=== PATIENT | male | born 1980 | race Caucasian/White ===

== ENCOUNTER 2017-09-18 12:58 | Emergency (ER) | payer SELFPAY ==
[2017-09-18] MEDS ORDERED: Sodium Chloride 0.9% 1,000 ML IV ONE (13:18)
[2017-09-18] MEDS ORDERED: Ketorolac 30 MG/ML SDV IVPUSH ONE (13:18)
[2017-09-18] MEDS ORDERED: Ondansetron 4 MG/2 ML SDV IVPUSH ONE (13:18)
--- NOTE | 2017-09-18 13:30 | EDM.PDOC ---
ED HPI GENERAL MEDICAL PROBLEM - General Chief Complaint: Back Pain or Injury Stated Complaint: LOWER BACK PAIN Time Seen by Provider: 09/18/17 13:04 Source of Information: Reports: Patient History Limitations: Reports: No Limitations - History of Present Illness INITIAL COMMENTS - FREE TEXT/NARRATIVE: HISTORY AND PHYSICAL: History of present illness: Patient is a 37-year-old male who presents to the emergency room with complaints of left flank pain. He states for the past 2 days he has had increased urgency and frequency with urination and left flank pain. Reports that earlier today that the "pain was so bad" that he did have an emesis. He denies any hematuria, dysuria, abdominal pain or tenderness, diarrhea, constipation.. Denies any fever, chills, chest pain, shortness of breath. Denies any recent injury or trauma Review of systems: As per history of present illness and below otherwise all systems reviewed and negative. Past medical history: As per history of present illness and as reviewed below otherwise noncontributory. Surgical history: As per history of present illness and as reviewed below otherwise noncontributory. Social history: No reported history of drug or alcohol abuse. Family history: As per history of present illness and as reviewed below otherwise noncontributory. Physical exam: General: Well-developed and well-nourished 37-year-old male. Alert and oriented. Nontoxic appearing and in no acute distress. HEENT: Atraumatic, normocephalic, pupils reactive, negative for conjunctival pallor or scleral icterus, mucous membranes moist, throat clear, neck supple, nontender, trachea midline. Lungs: Clear to auscultation, breath sounds equal bilaterally, chest nontender. Heart: S1S2, regular rate and rhythm Abdomen: Soft, nondistended, nontender. Negative for masses or hepatosplenomegaly. Mild left sided costovertebral tenderness. Pelvis: Stable nontender. Genitourinary: Deferred. Rectal: Deferred. Extremities: Atraumatic, negative for cords or calf pain. Neurovascular unremarkable. Neuro: Awake, alert, oriented. Cranial nerves II through XII unremarkable. Cerebellum unremarkable. Motor and sensory unremarkable throughout. Exam nonfocal. Patient was able to void a small amounts of clear yellow urine. No obvious blood noted in the specimen. Patient is agreeable to CT scan and routine labs at this time. CT of the abdomen and pelvis show a 3 mm stone in the left posterior urinary bladder, no hydronephrosis. The UA shows bacteria without any WBCs, a urine alter has been added. We'll treat the patient with [place] (disp #15 - NRF), Flomax, Zofran and levofloxacin. Encouraged patient to follow up with urology next week. He voices understanding and is agreeable to plan of care. Diagnostics: CBC, CMP, UA, CT abdomen and pelvis without contrast Therapeutics: IV fluid, Zofran, Toradol Flomax Impression: #1 Left flank pain #2 Kidney stone Plan: 1. Please take your medications as directed. Flomax 0.4 mg once daily 14 days. Zofran as needed for nausea one tab every 6 hours as needed. [place] 1-2 tab every 4-6 hours as needed. This medication may cause drowsiness a do not take it while driving or needing to be functioning outside of the house. He may do Tylenol and/or ibuprofen as needed for breakthrough pain or daytime use. An antibiotic has been given to or some bacteria in the urine. Please take one tab daily 7 days. Urine culture has been added, we will call you if this antibiotic needs to be changed. 2. Increase her fluid intake. Avoid excessive caffiene intake. 3. Follow up with Dr. Esqueda next week. Return to the ED as needed and as discussed. Definitive disposition and diagnosis as appropriate pending reevaluation and review of above. Duration: Day(s): Location: Reports: Abdomen Left Flank Pain Score (Numeric/FACES): 9 - Related Data Allergies Allergy/AdvReac Type Severity Reaction Status Date / Time No Known Allergies Allergy Verified 09/18/17 13:15 Home Meds: Home Meds . [No Known Home Meds] 09/18/17 [History] Past Medical History - Past Health History Medical/Surgical History: Denies Medical/Surgical History Social & Family History - Tobacco Use Smoking Status *Q: Current Every Day Smoker Years of Tobacco use: 10 Packs/Tins Daily: 0.5 Second Hand Smoke Exposure: No - Caffeine Use Caffeine Use: Reports: Soda - Recreational Drug Use Recreational Drug Use: No ED ROS GENERAL - Review of Systems Review Of Systems: ROS reveals no pertinent complaints other than HPI. ED EXAM, RENAL/ - Physical Exam Exam: See Below (See dictation) Course - Vital Signs Last Recorded V/S: Last Vital Signs Temp 97.4 F 09/18/17 13:21 Pulse 90 09/18/17 13:21 Resp 18 09/18/17 13:21 BP 140/87 09/18/17 13:21 Pulse Ox 97 09/18/17 13:21 - Orders/Labs/Meds Orders: Active Orders 24 hr Category Date Time Status Abdomen Pelvis wo Cont [CT] Stat Exams 09/18/17 13:18 Taken CHLAMYDIA AND GONORRHEA BY [facility] Stat Lab 09/18/17 14:24 Ordered CULTURE URINE [RM] Stat Lab 09/18/17 14:27 Uncollected Labs: Laboratory Tests 09/18/17 09/18/17 09/18/17 Range/Units 13:27 13:31 13:31 WBC 10.89 (4.0-11.0) K/uL RBC 5.29 (4.50-5.90) M/uL Hgb 16.5 (13.0-17.0) g/dL Hct 46.7 (38.0-50.0) % MCV 88.3 (80.0-98.0) fL MCH 31.2 (27.0-32.0) pg MCHC 35.3 (31.0-37.0) g/dL RDW Std Deviation 41.0 (28.0-62.0) fl RDW Coeff of Brett 13 (11.0-15.0) % Plt Count 288 (150-400) K/uL MPV 10.70 (7.40-12.00) fL Neut % (Auto) 68.6 (48.0-80.0) % Lymph % (Auto) 20.3 (16.0-40.0) % Yates % (Auto) 9.8 (0.0-15.0) % Eos % (Auto) 1.0 (0.0-7.0) % Baso % (Auto) 0.3 (0.0-1.5) % Neut # (Auto) 7.5 H (1.4-5.7) K/uL Lymph # (Auto) 2.2 (0.6-2.4) K/uL Yates # (Auto) 1.1 H (0.0-0.8) K/uL Eos # (Auto) 0.1 (0.0-0.7) K/uL Baso # (Auto) 0.0 (0.0-0.1) K/uL Nucleated RBC % 0.0 /100WBC Nucleated RBCs # 0 K/uL Sodium 140 (136-146) mmol/L Potassium 4.1 (3.5-5.1) mmol/L Chloride 103 (98-110) mmol/L Carbon Dioxide 27 (21-31) mmol/L BUN 12 (6.0-23.0) mg/dL Creatinine 1.0 (0.6-1.5) mg/dL Est Cr Clr Drug Dosing 92.61 mL/min Estimated GFR (MDRD) > 60.0 ml/min Glucose 124 H (60-110) mg/dL Calcium 9.2 (8.8-10.8) mg/dL Total Bilirubin 0.5 (0.1-1.5) mg/dL AST 23 (5-40) IU/L ALT 51 (8-54) IU/L Alkaline Phosphatase 85 (40-150) Total Protein 6.9 (6.0-8.0) g/dL Albumin 4.3 (3.5-5.0) g/dL Globulin 2.6 (2.0-3.5) g/dL Albumin/Globulin Ratio 1.7 (1.3-2.8) Urine Color YELLOW Urine Appearance CLOUDY Urine pH 8.0 (5.0-8.0) Ur Specific [place] 1.020 (1.001-1.035) Urine Protein TRACE (NEGATIVE) mg/dL Urine Glucose (UA) NEGATIVE (NEGATIVE) mg/dL Urine Ketones TRACE H (NEGATIVE) mg/dL Urine Occult Blood MODERATE (NEGATIVE) Urine Nitrite NEGATIVE (NEGATIVE) Urine Bilirubin NEGATIVE (NEGATIVE) Urine Urobilinogen 0.2 (<2.0) EU/dL Ur Leukocyte Esterase NEGATIVE (NEGATIVE) Urine RBC 4-7 (0-2/HPF) Urine WBC 0-1 (0-5/HPF) Ur Epithelial Cells RARE (NONE-FEW) Amorphous Sediment MODERATE (NEGATIVE) Urine Bacteria 2+ H (NEGATIVE) Meds: Medications Discontinued Medications Generic Name Dose Route Start Last Admin Trade Name Freq PRN Reason Stop Dose Admin Sodium Chloride 1,000 mls @ 999 mls/hr 09/18/17 13:18 09/18/17 13:34 Normal Saline IV 09/18/17 14:18 999 mls/hr STAT ONE Administration Ketorolac Tromethamine 30 mg 09/18/17 13:18 09/18/17 13:34 Toradol IVPUSH 09/18/17 13:19 30 mg ONETIME ONE Administration Ondansetron HCl 4 mg 09/18/17 13:18 09/18/17 13:34 Zofran IVPUSH 09/18/17 13:19 4 mg ONETIME ONE Administration Departure - Departure Time of Disposition: 14:32 Disposition: Home, Self-Care 01 Clinical Impression: Kidney stone on left side - Discharge Information Referrals: PCP,None [Primary Care Provider] - Forms: ED Department Discharge Additional Instructions: My general discharge The following information is given to patients seen in the emergency department who are being discharged to home. This information is to outline your options for follow-up care. We provide all patients seen in our emergency department with a follow-up referral. The need for follow-up, as well as the timing and circumstances, are variable depending upon the specifics of your emergency department visit. If you don't have a primary care physician on staff, we will provide you with a referral. We always advise you to contact your personal physician following an emergency department visit to inform them of the circumstance of the visit and for follow-up with them and/or the need for any referrals to a consulting specialist. The emergency department will also refer you to a specialist when appropriate. This referral assures that you have the opportunity for follow-up care with a specialist. All of these measure are taken in an effort to provide you with optimal care, which includes your follow-up. Under all circumstances we always encourage you to contact your private physician who remains a resource for coordinating your care. When calling for follow-up care, please make the office aware that this follow-up is from your recent emergency room visit. If for any reason you are refused follow-up, please contact the [facility] at and asked to speak to the emergency department charge nurse. [facility] Professional [address], [address] [place] [address] 1. Please take your medications as directed. Flomax 0.4 mg once daily 14 days. Zofran as needed for nausea one tab every 6 hours as needed. [place] 1-2 tab every 4-6 hours as needed. This medication may cause drowsiness a do not take it while driving or needing to be functioning outside of the house. He may do Tylenol and/or ibuprofen as needed for breakthrough pain or daytime use. An antibiotic, Levaquin has been given to or some bacteria in the urine. Please take one tab daily 7 days. Urine culture has been added, we will call you if this antibiotic needs to be changed. 2. Increase her fluid intake. Avoid excessive caffiene intake. 3. Follow up with Dr. Esqueda next week. Return to the ED as needed and as discussed. - My Orders Last 24 Hours: My Active Orders 09/18/17 13:18 Abdomen Pelvis wo Cont [CT] Stat 09/18/17 14:24 CHLAMYDIA AND GONORRHEA BY TMA Stat 09/18/17 14:27 CULTURE URINE [RM] Stat - Assessment/Plan Last 24 Hours: My Active Orders 09/18/17 13:18 Abdomen Pelvis wo Cont [CT] Stat 09/18/17 14:24 CHLAMYDIA AND GONORRHEA BY [facility]MA Stat 09/18/17 14:27 CULTURE URINE [RM] Stat
[2017-09-18 14:09] LABS: CHLORIDE,CL 103 mmol/L (98-110); SODIUM,NA 140 mmol/L (136-146)
[2017-09-18] MEDS ORDERED: Tamsulosin 0.4 MG Cap.ER PO ONE (14:33)
--- NOTE | 2017-09-20 14:20 | CT ---
EXAM DATE: 09/18/17 PATIENT'S AGE: 37 Patient: REZA PATRICIA Facility: [place], [place] Site . Site : [id number] Study: CT Abdomen/Pelvis [id number] 2:09:49 PM Ordering Physician: Doctor Birmingham Final Report: INDICATION: Left flank pain. TECHNIQUE: CT abdomen and pelvis performed without oral or IV contrast. FINDINGS: Multiple tiny opaque densities within the colon and small bowel related to recently ingested high-density material. Slight linear atelectasis or scarring in the lung bases. The appendix is normal. 3 mm stone in the left posterior urinary bladder could of recently passed from the left ureter into the bladder or could still lie in the left UVJ and be partially obstructing. Slight prominence of the left ureter and left internal collecting system without craig hydronephrosis likely related to this stone. Tiny periumbilical fat containing anterior pelvic wall hernia. Remainder negative. IMPRESSION: 1. 3 mm stone in the left posterior urinary bladder could of recently passed from the left ureter or could still lie within the left UVJ and still be partially obstructive. Slight prominence of the left ureter and intrarenal collecting system likely related to the stone either still being obstructive or recently being obstructive. Other findings as described above. Please note that all CT scans at this facility use dose modulation, iterative reconstruction, and/or weight-based dosing when appropriate to reduce radiation dose to as low as reasonably achievable. Dictated by James Garcia MD @ Sep 18 2017 2:11PM (Electronic Signature) Report Signed by Proxy. ALBA
== END 2017-09-18 14:44 | disposition home or self-care (01) ==
LOC: MW.ED 12:58
DX: N20.0 Calculus of kidney (principal); F17.210 Nicotine dependence, cigarettes, uncomplicated
CPT/HCPCS: 36415; 74176; 80053; 81001; 85025; 87086; 96361; 96374; 96375; 99284; A9270; J1885; J2405; J7040